=== PATIENT | male | born 1960 | race Caucasian/White ===

== ENCOUNTER → 2018-04-22 | Day surgery (SDC) | payer OTHER ==
[~2018-04-22] MED LIST: ANESTHESIA TRAY IN PYXIS 1 EA TRAY MC ONE; EPINEPHRINE (1:1000) MDV 30 MG/30ML VIAL ONE; HYDROCODONE/APAP 5/325MG 1 EACH TABLET PO PRN; HYDROMORPHONE INJ 2 MG/ML DISP.SYRIN ONE; LIDOCAINE 0.5% HCL 50 ML VIAL ONE; MIDAZOLAM HCL 2 MG/2ML VIAL ONE; ROCURONIUM BROMIDE 50 MG/5 ML ONE
== END | disposition home or self-care (01) ==
LOC: DS 07:44
PROVIDERS: ATTEND Specialist
DX: S46.011A Strain of muscle(s) and tendon(s) of the rotator cuff of right shoulder, initial encounter (principal); M75.41 Impingement syndrome of right shoulder; M19.011 Primary osteoarthritis, right shoulder; M65.811 Other synovitis and tenosynovitis, right shoulder; X58.XXXA Exposure to other specified factors, initial encounter; Y93.89 Activity, other specified; Y92.89 Other specified places as the place of occurrence of the external cause; Y99.8 Other external cause status; I10 Essential (primary) hypertension; E66.01 Morbid (severe) obesity due to excess calories; Z68.30 Body mass index [BMI] 30.0-30.9, adult; Z79.899 Other long term (current) drug therapy
CPT/HCPCS: A4217; A4565; A6253; C1713; J0171; J0690; J1100; J1170; J1885; J2250; J2405; J2704; J2710; J3490